=== PATIENT | female | born 1935 | race Caucasian/White ===

== ENCOUNTER → 2020-12-05 | Outpatient (CLI) | payer MEDICARE, OTHER ==
--- NOTE | 2020-12-05 14:13 | Diagnostic Imaging Report ---
INDICATION: Bilateral shoulder pain. COMPARISON: None. FINDINGS: Multiple radiographic views of both shoulders were obtained. There is no acute fracture or dislocation on either side. Mild degenerative changes are noted and consist of narrowing of the glenohumeral joint spaces, right greater than left. There are also osteophytes involving the undersurface of the AC joints. Humeral head osteophytes are also identified bilaterally. IMPRESSION: 1. No acute fracture or dislocation of either shoulder. 2. Underlying mild degenerative changes. Dictated by: Dictated on workstation # [id number]
== END ==
LOC: ORTHO 11:10
PROVIDERS: ATTEND Orthopaedic Surgery
DX: M19.011 Primary osteoarthritis, right shoulder (principal); M19.012 Primary osteoarthritis, left shoulder
CPT/HCPCS: 20610; 73030; G0463

== ENCOUNTER → 2021-05-22 | Outpatient (CLI) | payer MEDICARE, OTHER | LOC: ORTHO 14:05 | PROVIDERS: ATTEND Orthopaedic Surgery | DX: M25.511 Pain in right shoulder (principal); M25.512 Pain in left shoulder | CPT/HCPCS: 20610 ==

== ENCOUNTER → 2021-11-06 | Outpatient (CLI) | payer MEDICARE, OTHER | LOC: ORTHO 14:53 | PROVIDERS: ATTEND Orthopaedic Surgery | DX: M19.011 Primary osteoarthritis, right shoulder (principal); M19.012 Primary osteoarthritis, left shoulder ==

== ENCOUNTER → 2022-04-30 | Outpatient (CLI) | payer MEDICARE | LOC: ORTHO 13:45 | PROVIDERS: ATTEND Orthopaedic Surgery | DX: M19.011 Primary osteoarthritis, right shoulder (principal); M19.012 Primary osteoarthritis, left shoulder ==

== ENCOUNTER → 2022-04-30 | Outpatient (CLI) | payer MEDICARE | LOC: ORTHO 14:01 | PROVIDERS: ATTEND Orthopaedic Surgery | DX: M19.012 Primary osteoarthritis, left shoulder (principal); M19.011 Primary osteoarthritis, right shoulder ==

== ENCOUNTER → 2022-04-30 | Outpatient (CLI) | payer MEDICARE, OTHER | LOC: ORTHO 11:33 | PROVIDERS: ATTEND Orthopaedic Surgery | DX: M19.012 Primary osteoarthritis, left shoulder (principal); M19.011 Primary osteoarthritis, right shoulder ==

== ENCOUNTER → 2022-10-29 | Outpatient (CLI) | payer MEDICARE | LOC: ORTHO 13:02 | PROVIDERS: ATTEND Orthopaedic Surgery | DX: M19.012 Primary osteoarthritis, left shoulder (principal); M19.011 Primary osteoarthritis, right shoulder ==